=== PATIENT | female | born 1970 | race Caucasian/White ===

== ENCOUNTER → 2021-05-02 | Outpatient (CLI) | payer OTHER ==
--- NOTE | 2021-05-02 08:50 | RAD ---
INDICATION: Reason: DUB / Spl. Instructions: / History: COMPARISON: None. TECHNIQUE: Grayscale and color ultrasound images uterus and adnexa. Transabdominal and transvaginal images obtained. Transvaginal images were needed to better visualize structures that were limited on transabdominal imaging. FINDINGS: Uterus: 81 x 62 x 45 mm. 3 mm endometrial stripe Right Ovary: 41 x 27 x 20 mm. Left Ovary: 38 x 19 x 16 mm. Vascular flow identified to bilateral ovaries. Bilateral follicles are seen measuring up to about 19 mm. Nabothian cyst formation. IMPRESSION: * Vascular flow seen to the ovaries. * No thickening of the endometrial stripe is seen. Electronically signed by: Rodo Poon MD (05/02/2021 8:47 AM) [id number]
== END ==
LOC: US 07:53
PROVIDERS: ATTEND Obstetrics & Gynecology
DX: N88.8 Other specified noninflammatory disorders of cervix uteri (principal); N92.0 Excessive and frequent menstruation with regular cycle; N93.8 Other specified abnormal uterine and vaginal bleeding; N92.6 Irregular menstruation, unspecified
CPT/HCPCS: 76830; 76856

== ENCOUNTER → 2021-05-13 | Outpatient (CLI) | payer OTHER ==
--- NOTE | 2021-05-14 09:44 | RAD ---
US THYROID History: Reason: THYROID ENLARGEMENT, DYSFUNCTION; PT HAS LYMPHOMA, HX OF CHEMO / Spl. Instructions: / History: Comparison: None. Technique: Multiple grayscale and color Doppler images of the thyroid gland were obtained. Findings: Right thyroid lobe: 5.7 x 2.5 x 1.8 cm. Heterogeneous echotexture with increased vascularity. Left thyroid lobe: 4.9 x 1.6 x 1.2 cm. Heterogeneous echotexture with increased vascularity. Isthmus: 0.3 cm. Diffuse nodular appearance of the thyroid. Mildly enlarged bilateral deep cervical chain lymph nodes with normal fatty isabel. Largest on the right measures 1.7 x by 0.6 cm and largest on the left measure s 1.9 x 0.5 cm. ACR Thyroid Imaging, Reporting And Data System (TI-RADS): White Paper Of The ACR TI-RADS Committee. J ournal of the [employer], volume 14, issue 5, pages 587-595 (June 2016). IMPRESSION: 1. Enlarged diffusely heterogeneous hypervascular nodular thyroid, can be seen with nonspecific thyr oiditis. Recommend correlation with thyroid lab values. Also recommend further clinical evaluation an d potential biopsy depending on laboratory values given history of lymphoma. 2. Mildly prominent bilateral deep cervical chain lymph nodes. Recommend follow-up. Electronically signed by: Kael Swanson DO (05/14/2021 9:42 AM) [id number]
== END ==
LOC: US 15:58
PROVIDERS: ATTEND Physician Assistant
DX: E04.9 Nontoxic goiter, unspecified (principal); R59.0 Localized enlarged lymph nodes
CPT/HCPCS: 76536